=== PATIENT | female | born 2000 | race Caucasian/White ===

== ENCOUNTER 2018-05-19 18:01 | Emergency (ER) | payer OTHER ==
[2018-05-19 18:09] VITALS: BP 134/84; PULSE 72; RESP 18; TEMP 98
--- NOTE | 2018-05-19 18:21 | ED ---
General Adult HPI - General Chief complaint: Recheck/Abnormal Lab/Rx Stated complaint: [facility] TESTING Time Seen by Provider: 05/19/18 18:15 Source: patient, RN notes reviewed, old records reviewed Mode of arrival: ambulatory Limitations: no limitations - History of Present Illness Initial comments: 17-year-old female patient presents to ED for drug test as required by job. Pt declines any complaints today. Declines injury. Systemic: Pt denies fatigue, myalgia, fever/chills, rash. Pt denies weakness, night sweats, weight loss. Neuro: Pt denies headache, visual disturbances, syncope or pre-syncope. HEENT: Pt denies ocular discharge or irritation, otalgia, rhinorrhea, pharyngitis or notable lymphadenopathy. Cardiopulmonary: Pt denies chest pain, SOB, heart palpitations, dyspnea on exertion. Abdominal/GI: Pt denies abdominal pain, n/v/d. : Pt denies dysuria, burning w/ urination, frequency/urgency. Denies new onset urinary or bowel incontinence. MSK: Pt denies myalgia, loss of strength or function in extremities. Neuro: Pt denies new onset weakness, paresthesias. Review of Systems ROS Statement: Those systems with pertinent positive or pertinent negative responses have been documented in the HPI. ROS Other: All systems not noted in ROS Statement are negative. Past Medical History Past Medical History: No Reported History History of Any Multi-Drug Resistant Organisms: None Reported Past Surgical History: No Surgical Hx Reported Past Psychological History: No Psychological Hx Reported Smoking Status: Never smoker Past Alcohol Use History: None Reported Past Drug Use History: None Reported General Exam - General Exam Comments Initial Comments: Constitutional: NAD, AOX3, Pt has pleasant affect. HEENT: NC/AT, trachea midline, neck supple, no lymphadenopathy. Posterior pharynx non erythematous, without exudates. External ears appear normal, without discharge. Mucous membranes moist. Eyes PERRLA, EOM intact. There is no scleral icterus. No pallor noted. Cardiopulmonary: RRR, no murmurs, rubs or gallops, no JVD noted. Lungs CTAB in anterior and posterior garcia. No peripheral edema. Abdominal exam: Abdomen soft and non-distended. Abdomen non-tender to palpation in all 4 quadrants. Bowel sounds active in LLQ. No hepatosplenomegaly. No ecchymosis Neuro: CN II-XII grossly intact. No nuchal rigidity. MSK: No posterior calf tenderness bilaterally, homans sign negative bilaterally. Posterior tibialis and radial pulse +2 bilaterally. Sensation intact in upper and lower extremities. Full active ROM in upper and lower extremities, 5/5 stregnth. Limitations: no limitations Course Vital Signs 05/19/18 18:05 Temperature 98 F Pulse Rate 72 Respiratory 18 Rate Blood Pressure 134/84 O2 Sat by Pulse 100 Oximetry Medical Decision Making - Medical Decision Making 17-year-old female patient presents to ED for drug test as required by job. Patient has no complaints. Patient to return to ED if new signs or symptoms develop or condition worsens anyway. Case discussed with Dr. Marti. Disposition Clinical Impression: Encounter for employment-related drug testing Disposition: HOME SELF-CARE Condition: Stable Additional Instructions: Patient to adhere to previously discussed treatment plan and will take medication(s) as directed. Patient to follow up with PCP in 1-2 days. Patient to return to ED if symptoms do not improve. Is patient prescribed a controlled substance at d/c from ED?: No Referrals: None,Stated [Primary Care Provider] - 1-2 days Time of Disposition: 18:20
== END 2018-05-19 18:55 | disposition home or self-care (01) ==
LOC: EC 18:01
DX: Z02.1 Encounter for pre-employment examination (principal)
CPT/HCPCS: 99282

== ENCOUNTER 2018-09-02 07:43 | Outpatient (CLI) | payer BC, OTHER ==
[2018-09-02 08:53] LABS: Appearance,Urine Clear (Clear); Bacteria,Urine Few /hpf; Bilirubin,Urine Negative (Negative); Blood,Urine Negative (Negative); Color,Urine Light Yellow; Glucose,Urine (UA) Negative (Negative); Ketones,Urine Negative (Negative); Leukocyte Esterase,Urine Trace (Negative); Mucus,Urine Rare /hpf; Nitrite,Urine Negative (Negative); PH, Urine 6.5 (5.0-8.0); Protein,Urine Negative (Negative); Specific Gravity,Urine 1.007 (1.001-1.035); Squamous Epithelial Cell,Urine 2 /hpf (0-4); Urobilinogen,Urine <2.0 mg/dL (<2.0); WBC,Urine 1 /hpf (0-5)
[2018-09-02 10:40] VITALS: BP 120/66; PULSE 76; RESP 16; TEMP 98.7
--- NOTE | 2018-09-07 10:25 | P.MSEPDOC ---
Presenting Problems - Arrival Data Date of Arrival on Unit: 09/02/18 Time of Arrival on Unit: 07:43 Mode of Transport: Ambulatory - Complaint OB-Reason for Admission/Chief Complaint: Observation/Evaluation Comment: abd pain Medical History - Information : 1 Para: 0 Term: 0 : 0 Abortions: Spontaneous or Elective: 0 Number of Living Children: 0 - Gestational Age Gestational Age by CHARLA (wks/days): 24 Weeks and 6 Days Review of Systems - Review of Systems Constitutional: No problems Breast: No problems ENT: No problems Cardiovascular: No problems Respiratory: No problems Gastrointestinal: Pain Genitourinary: No problems Musculoskeletal: No problems Neurological: No problems Skin: No problems Vital Signs - Temperature Temperature: 98.7 F Temperature Source: Oral - Pulse Right Sitting Pulse Rate: 76 Pulse Assessment Method: Automatic Cuff - Respirations Respiratory Rate: 16 Oxygen Delivery Method: Room Air - Blood Pressure Right Arm Blood Pressure: 120/66 Blood Pressure Mean: 84 Blood Pressure Source: Automatic Cuff Medical Screen Scoring (Pre) - Cervical Exam Dilation: Exam Deferred Effacement: Exam Deferred - Uterine Contractions Frequency: N/A - Maternal Vital Signs Maternal Temperature: N/A Maternal Blood Pressure: N/A Signs of Preeclampsia: N/A - Pain Assessment Pain Location and Character: Abdomen Pain Scale Used: Numeric (1 - 10) Pain Intensity: 7 Pain Management Goal: 8 Pain Description: Stabbing, Tender Pain Frequency: Constant Pain Duration Units: Hours Pain Behavior: Vocalization Pain Aggravating Factors: None Non-Pharmacological Interventions: Position/Reposition - Maternal Trauma Maternal Trauma: N/A - Assessment Baseline FHR: 125 Heart Rate - NICHD Category: Category I (Normal) = 0 Position: N/A Station: N/A - Total Score Total Score (Pre): 0 - Level of Risk Level of Risk: Low (0-5) Physician Notification (Pre) - Physician Notified Physician Notified Date: 09/02/18 Physician Notified Time: 08:25 Physician/Practitioner Notifed:: Kiki Hawley Order Received: Yes (Send ua, if negative d/c home) Disposition - Disposition OB Disposition: Discharge to home Discharge Date: 09/02/18 Discharge Time: 09:15 I agree with the RN Medical Screening Exam: Yes Risk & Benefit of care provided described in d/c instruction: Yes Diagnosis: RELATED CONDITIONS, UNSPECIFIED, SECOND TRIMESTER
== END 2018-09-02 09:15 | disposition home or self-care (01) ==
LOC: FBPOP 07:43
PROVIDERS: ATTEND Obstetrics & Gynecology
DX: O26.92 Pregnancy related conditions, unspecified, second trimester (principal); Z3A.24 24 weeks gestation of pregnancy
CPT/HCPCS: 81001; 99213

== ENCOUNTER 2018-10-22 08:10 | Outpatient (CLI) | payer BC, OTHER ==
[2018-10-22 08:45] VITALS: BP 117/75; PULSE 72; RESP 16; TEMP 97.6
--- NOTE | 2018-11-12 08:29 | P.MSEPDOC ---
Presenting Problems - Arrival Data Date of Arrival on Unit: 10/22/18 Time of Arrival on Unit: 08:10 Mode of Transport: Ambulatory - Complaint OB-Reason for Admission/Chief Complaint: Possible Onset of Labor, Other Comment: "discomfort" Medical History - Information : 1 Para: 0 Term: 0 : 0 Abortions: Spontaneous or Elective: 0 Number of Living Children: 0 - Gestational Age Gestational Age by CHARLA (wks/days): 32 Weeks and 0 Days Review of Systems - Review of Systems Constitutional: No problems Breast: No problems ENT: No problems Cardiovascular: No problems Respiratory: No problems Gastrointestinal: No problems Genitourinary: No problems Musculoskeletal: No problems Neurological: No problems Skin: No problems Comment: intercourse last night. no other problem Vital Signs - Temperature Temperature: 97.6 F Temperature Source: Temporal Artery Scan - Pulse Apical Pulse Rate: 72 Pulse Assessment Method: Automatic Cuff - Respirations Respiratory Rate: 16 Oxygen Delivery Method: Room Air - Blood Pressure Right Arm Blood Pressure: 117/75 Blood Pressure Mean: 89 Blood Pressure Source: Automatic Cuff Medical Screen Scoring (Pre) - Cervical Exam Dilation: 0 cm = 0 Effacement: More than 50% = 2 Membranes: Intact - Uterine Contractions Frequency: N/A Duration: N/A Intensity: N/A - Maternal Vital Signs Maternal Temperature: N/A Maternal Blood Pressure: N/A Signs of Preeclampsia: N/A Maternal Respirations: N/A - Maternal Trauma Maternal Trauma: N/A - Assessment - Baby A Baseline FHR: 135 Heart Rate - NICHD Category: Category I (Normal) = 0 NST: Reactive Position: N/A Station: N/A - Total Score - Baby A Total Score - Baby A: 2 - Total Score - Baby B Total Score - Baby B: 2 - Total Score - Baby C Total Score - Baby C: 2 - Level of Risk - Baby A Level of Risk - Baby A: Low (0-5) - Level of Risk - Baby B Level of Risk - Baby B: Low (0-5) - Level of Risk - Baby C Level of Risk - Baby C: Low (0-5) Physician Notification (Pre) - Physician Notified Physician Notified Date: 10/22/18 Physician Notified Time: 08:40 Physician/Practitioner Notifed:: brianna Spoke With: tremp New Order Received: Yes - Notification Comment Comment: discharge home with instructions Disposition - Disposition OB Disposition: Discharge to home Discharge Date: 10/22/18 Discharge Time: 09:00 I agree with the RN Medical Screening Exam: Yes Risk & Benefit of care provided described in d/c instruction: Yes Diagnosis: FALSE LABOR BEFORE 37 COMPLETED WEEKS OF GEST, THIRD TRI
== END 2018-10-22 08:48 | disposition home or self-care (01) ==
LOC: FBPOP 08:10
PROVIDERS: ATTEND Obstetrics & Gynecology
DX: O47.03 False labor before 37 completed weeks of gestation, third trimester (principal); Z3A.32 32 weeks gestation of pregnancy
CPT/HCPCS: 59025; 99213

== ENCOUNTER 2018-12-20 05:54 | Inpatient (IN) | payer BC, OTHER ==
[2018-12-20] MEDS ORDERED: LIDOCAINE 0.5% (PF) 5 MG/ML (50 ML SDV) SQ PRN (06:04)
[2018-12-20] MEDS ORDERED: CARBOPROST TROMETHAMINE 250 MCG/ML 1 ML AMP IM PRN (06:04)
[2018-12-20] MEDS ORDERED: OXYTOCIN 10 UNIT/ML 1 ML VIAL IM PRN (06:04)
[2018-12-20] MEDS ORDERED: TERBUTALINE 1 MG/ML VIAL SQ PRN (06:04)
[2018-12-20] MEDS ORDERED: METHYLERGONOVINE 0.2 MG/ML 1 ML AMP IM PRN (06:04)
[2018-12-20] MEDS ORDERED: OXYTOCIN 30 UNITS/500 ML NS 30 UNIT in SALINE 1 500ML.BAG IV SCH (06:15)
[2018-12-20] MEDS: LACTATED RINGERS 1,000 ML IV SCH ×3 (06:17→12:37)
[2018-12-20 06:24] VITALS: BMI 29.3
[2018-12-20 06:35] LABS: Basophils % (A) 0 %; Eosinophils # (A) 0.2 k/uL (0-0.7); Eosinophils % (A) 2 %; HCT 35.6 % (34.0-46.0); Lymphocytes # (A) 1.7 k/uL (1.0-4.8); Lymphocytes % (A) 17 %; MCH 29.2 pg (25.0-35.0); MCHC 33.7 g/dL (31.0-37.0); MCV 86.7 fL (80.0-100.0); Monocytes # (A) 0.6 k/uL (0-1.0); Monocytes % (A) 6 %; Neutrophils # (A) 7.2 k/uL (1.3-7.7); Neutrophils % (A) 73 %; Platelet Count 161 k/uL (150-450); RBC 4.11 m/uL (3.80-5.40); RDW 15.8 % (11.5-15.5); WBC 9.8 k/uL (4.0-11.0)
[2018-12-20 07:02] LABS: Large Platelets Present
--- NOTE | 2018-12-20 07:26 | P.HPOB ---
History of Present Illness H&P Date: 12/20/18 Chief Complaint: Postdates This is a 18-year-old 1 para 0 woman with an estimated due date of 12/27/2018 based on LMP consistent with second trimester ultrasound. She is admitted at 40-3/7 weeks gestation for induction of labor. She's had an uncomplicated . She denies contractions, vaginal bleeding or leakage of fluids. She feels good movement. Laboratory data: Blood type AB+, antibody screen negative, rubella immune, VDRL nonreactive, hepatitis B surface antigen negative, HIV negative, glucose tolerance testing within normal limits, group B strep negative. Review of Systems All systems: negative Past Medical History Past Medical History: No Reported History History of Any Multi-Drug Resistant Organisms: None Reported Past Surgical History: No Surgical Hx Reported Past Psychological History: No Psychological Hx Reported Smoking Status: Never smoker Past Alcohol Use History: None Reported Past Drug Use History: None Reported - Past Family History Mother Family Medical History: Diabetes Mellitus Medications and Allergies Home Medications Medication Instructions Recorded Confirmed Type Pnv No.95/Ferrous Fum/Folic AC 1 tab PO DAILY 09/02/18 12/20/18 History [ Multivitamin Tablet] Allergies Allergy/AdvReac Type Severity Reaction Status Date / Time No Known Allergies Allergy Verified 12/20/18 06:03 Exam Vital Signs Temp Pulse Resp BP Pulse Ox 12/20/18 06:18 97.8 F 78 17 128/83 99 Intake and Output 12/19/18 12/20/18 12/20/18 22:59 06:59 14:59 Other: Weight 82.554 kg Targeted physical exam is performed. This is a comfortable appearing, visibly gravid female. On pelvic exam the cervix is 3 cm dilated, 70% effaced, posterior and the vertex in the -2 station. Artificial rupture of membranes is undertaken and copious clear fluid is noted. heart tones are category 1 by external monitoring and she is not regularly patricio. Results Result Diagrams: 12/20/18 06:15 Abnormal Lab Results - Last 24 Hours (Table) 12/20/18 Range/Units 06:15 RDW 15.8 H (11.5-15.5) % Assessment and Plan (1) Post-dates Current Visit: Yes Status: Acute Code(s): O48.0 - POST-TERM SNOMED Code(s): 71526067 Plan: 18-year-old 1 para 0 woman admitted at 40-3/7 weeks gestation for postdates induction of labor with favorable cervix. Risks benefits and alternatives of this plan of interview the patient in the office. status is currently reassuring by external monitoring. Pitocin induction per protocol has been initiated she may receive have Stadol and/or epidural upon request in active labor for analgesia.
[2018-12-20] MEDS ORDERED: BUTORPHANOL 1 MG/ML 1 ML VIAL IV PRN (08:23)
[2018-12-20] MEDS ORDERED: SODIUM CHLORIDE 0.9% 100 ML BAG ONE (11:10)
[2018-12-20] MEDS ORDERED: ROPIVACAINE 5MG/ML 20ML VIAL ONE (11:10)
[2018-12-20] MEDS ORDERED: fentaNYL (PF) 50 MCG/ML 5 ML AMP ONE (11:10)
[2018-12-20] MEDS ORDERED: BENZOCAINE/MENTHOL SPRAY 1 GM/SPRAY AEROSOL TOPICAL PRN (15:27)
[2018-12-20] MEDS ORDERED: ACETAMINOPHEN TAB 325 MG TAB PO PRN (15:27)
[2018-12-20] MEDS ORDERED: LANOLIN CREAM 5 GM TUBE TOPICAL PRN (15:27)
[2018-12-20] MEDS ORDERED: diphenhydrAMINE 50 MG CAP PO PRN (15:27)
[2018-12-20] MEDS ORDERED: diphenhydrAMINE 25 MG CAP PO PRN (15:27)
[2018-12-20] MEDS ORDERED: HYDROCORTISONE 2.5% RECTAL CREAM 30 GM TUBE RECTAL PRN (15:27)
[2018-12-20] MEDS ORDERED: WITCH HAZEL 1 EACH MED..PAD TOPICAL PRN (15:27)
[2018-12-20] MEDS ORDERED: SIMETHICONE 80 MG CHEWABLE PO PRN (15:27)
[2018-12-20] MEDS ORDERED: diphenhydrAMINE 50 MG/ML 1 ML VIAL IVP PRN ×2 (15:27)
[2018-12-20] MEDS ORDERED: ZOLPIDEM 5 MG TAB PO PRN (15:27)
[2018-12-20] MEDS ORDERED: IBUPROFEN 600 MG TAB PO PRN (15:27)
--- NOTE | 2018-12-20 15:27 | P.PROBDLV ---
Vaginal Delivery Note - . Vaginal Delivery Note: Male in the vertex presentation with Apgars of 9 at 1 minute and 9 at 5 minutes weighing 8 lbs. 7 oz., 3830 g. Second-degree perineal laceration. Unusual appearing placenta with smooth but scalloped edges. The cord insertion was not marginal however there is a vessel traversing from near the base of the cord 1-2 cm lateral from the base of the cord insertion. Delivery summary: This is a 18-year-old 1 para 0 woman who is admitted at 40-3/7 weeks gestation for postdates induction of labor. Following admission she underwent artificial rupture of membranes with Pitocin induction of labor per protocol. She received an epidural anesthetic. She was group B strep negative. She had an unremarkable and somewhat rapid progression to complete cervical dilation and began pushing with excellent maternal effort. She had category 1 or 2 heart tones throughout her first stage and second stage of labor. With the patient was repositioned, prepped and draped in the modified Shalom position. With additional maternal effort the head did deliver from the left occiput anterior position. The anterior followed by the posterior shoulders were delivered without difficulty. The rest the was delivered onto the field. The nose and mouth were bulb suctioned and the cord was clamped and cut. A second degree perineal laceration was repaired with 3-0 Vicryl suture in the usual fashion. There is a somewhat prolonged third stage of labor with ultimately a manual assistance of delivery of the placenta. The placenta was for the most part delivered from the cervix however there was a large amount of membranous material that remained on the cervical canal that was removed manually. Bimanual exploration was then undertaken and no further placental tissue was noted. Please see the findings for description of appearance of the placenta. The uterus was massaged and was noted to be firm at the level of the umbilicus. The bladder was drained for approximately 200 mL of clear urine. EBL was approximately 200 mL's. Both mother and were doing well post delivery in the room.
[2018-12-20] MEDS ORDERED: OXYTOCIN 20 UNITS/1000 ML NS 1,000 ML IV SCH (15:30)
[2018-12-20] MEDS: SENNOSIDES-DOCUSATE SODIUM 1 EACH TAB PO SCH (19:36)
[2018-12-21 07:09] LABS: Basophils % (A) 0 %; Eosinophils # (A) 0.1 k/uL (0-0.7); Eosinophils % (A) 1 %; HCT 32.2 % (34.0-46.0); HGB 10.8 gm/dL (11.4-16.0); Lymphocytes # (A) 1.9 k/uL (1.0-4.8); Lymphocytes % (A) 16 %; MCH 29.3 pg (25.0-35.0); MCHC 33.5 g/dL (31.0-37.0); MCV 87.6 fL (80.0-100.0); Mean Platelet Volume 10.5; Monocytes # (A) 0.8 k/uL (0-1.0); Monocytes % (A) 7 %; Neutrophils # (A) 8.7 k/uL (1.3-7.7); Neutrophils % (A) 74 %; Platelet Count 159 k/uL (150-450); RBC 3.68 m/uL (3.80-5.40); RDW 14.5 % (11.5-15.5); WBC 11.8 k/uL (4.0-11.0)
[2018-12-21] MEDS: SENNOSIDES-DOCUSATE SODIUM 1 EACH TAB PO SCH (08:02)
[2018-12-21 08:09] VITALS: PULSE 75; RESP 16; TEMP 97.7
--- NOTE | 2018-12-21 09:16 | P.DS ---
Providers Date of admission: 12/20/18 05:54 Expected date of discharge: 12/21/18 Attending physician: Sonia Liao Primary care physician: Stated None - Discharge Diagnosis(es) (1) Post-dates Current Visit: Yes Status: Acute (2) Normal spontaneous vaginal delivery Current Visit: Yes Status: Acute (3) Perineal laceration with delivery, second degree Current Visit: Yes Status: Acute (4) Velamentous insertion of umbilical cord Current Visit: Yes Status: Acute Hospital Course: This is a 18-year-old 1 now para 1 woman who was admitted at 40-3/7 weeks gestation for postdates induction of labor with a favorable cervix. Following admission she underwent a Pitocin induction of labor per protocol with artificial rupture of membranes. Clear fluid was noted. She had an unremarkable first stage of labor during which she received an epidural anesthetic. She reached complete cervical dilation after an approximately 7 hour first stage of labor. She commenced pushing with excellent maternal effort and on had a fairly rapid delivery of a liveborn male infant over a second- degree perineal laceration. Weight was 8 lbs. 7 oz. with Apgars of 9 at 1 minute and 9 at 5 minutes. She had an approximately 20 minute third stage of labor with manual assistance of delivery of the placenta. The placenta was partially delivered from the cervix. There is a large amount of membranous material in the lower uterine segment that was manually removed. Upon inspection of the placenta there appeared to be a velamentous the cord inser tion. Please see the delivery summary for description. EBL for the delivery was approximately 200 mL's and the uterus did contract down nicely with Pitocin. She was given 2 doses of Ancef prophylactically and by the morning of day #1 she was afebrile with a normal white blood cell count. Her antibiotics were discontinued. Her lochia was moderate and her uterus palpated firm. Perineum is intact. She was therefore discharged home with routine instructions for care and follow-up. Procedures: Normal spontaneous vaginal delivery Manual extraction of placenta Patient Condition at Discharge: Good Plan - Discharge Summary New Discharge Prescriptions: No Action Pnv No.95/Ferrous Fum/Folic AC [ Multivitamin Tablet] 1 tab PO DAILY Discharge Medication List Pnv No.95/Ferrous Fum/Folic AC [ Multivitamin Tablet] 1 tab PO DAILY 05/26/19 [History] Follow up Appointment(s)/Referral(s): Sonia Liao MD [STAFF PHYSICIAN] - 6 Weeks Activity/Diet/Wound Care/Special Instructions: Follow-up in the office in 6 weeks . Call with any concerning signs or symptoms including heavy vaginal bleeding, severe abdominal pain, fever greater than 101, swelling or redness of the lower extremities, foul vaginal discharge, or signs of depression. Nothing in the vagina for 6 weeks after delivery, specifically no intercourse. May use [id number] ibuprofen and/or Tylenol as needed for pain. Discharge Disposition: HOME SELF-CARE
[2018-12-21 18:13] VITALS: BP 125/64
== END 2018-12-21 17:50 | disposition home or self-care (01) | DRG 807 ==
LOC: 4FBP 05:54
PROVIDERS: ADMIT Obstetrics & Gynecology; ATTEND Obstetrics & Gynecology
PROC: 10E0XZZ Delivery of Products of Conception, External Approach (ICD-10-PCS; principal; 2018-12-20)
PROC: 0KQM0ZZ Repair Perineum Muscle, Open Approach (ICD-10-PCS; 2018-12-20)
PROC: 10D17Z9 Manual Extraction of Products of Conception, Retained, Via Natural or Artificial Opening (ICD-10-PCS; 2018-12-20)
PROC: 3E033VJ Introduction of Other Hormone into Peripheral Vein, Percutaneous Approach (ICD-10-PCS; 2018-12-20)
PROC: 10907ZC Drainage of Amniotic Fluid, Therapeutic from Products of Conception, Via Natural or Artificial Opening (ICD-10-PCS; 2018-12-20)
PROC: 00HU33Z Insertion of Infusion Device into Spinal Canal, Percutaneous Approach (ICD-10-PCS; 2018-12-20)
PROC: 3E0R3BZ Introduction of Anesthetic Agent into Spinal Canal, Percutaneous Approach (ICD-10-PCS; 2018-12-20)
DX: O48.0 Post-term pregnancy (principal); Z37.0 Single live birth; O43.123 Velamentous insertion of umbilical cord, third trimester; O70.1 Second degree perineal laceration during delivery; Z3A.40 40 weeks gestation of pregnancy; Z79.899 Other long term (current) drug therapy; Z83.3 Family history of diabetes mellitus
CPT/HCPCS: 85025; 86850; 86900; 86901; 88307

== ENCOUNTER 2021-09-27 05:52 | Emergency (ER) | payer BC, OTHER ==
[2021-09-27 06:11] VITALS: TEMP 98.2
--- NOTE | 2021-09-27 06:30 | ED ---
General Adult HPI - General Chief complaint: Urogenital Stated complaint: Pelvic pain Time Seen by Provider: 09/27/21 06:19 Source: patient, RN notes reviewed, old records reviewed Mode of arrival: ambulatory Limitations: no limitations - History of Present Illness Initial comments: 21-year-old female presenting for evaluation of lower abdominal and pelvic pain. Symptoms began this morning. Patient had gotten up and gone to the bathroom. At the end of her urination she had moderate to severe bilateral lower abdominal pain which is improved but not completely resolved. There is no vomiting. No upper abdominal pain. Her last bowel movement was yesterday was normal. No diarrhea. No fever. No vaginal discharge. No hematuria. - Related Data Home Medications Medication Instructions Recorded Confirmed No Known Home Medications 09/27/21 09/27/21 Allergies Allergy/AdvReac Type Severity Reaction Status Date / Time No Known Allergies Allergy Verified 09/27/21 07:09 Review of Systems ROS Statement: Those systems with pertinent positive or pertinent negative responses have been documented in the HPI. ROS Other: All systems not noted in ROS Statement are negative. Past Medical History Past Medical History: No Reported History History of Any Multi-Drug Resistant Organisms: None Reported Past Surgical History: No Surgical Hx Reported Past Psychological History: Depression Smoking Status: Never smoker Past Alcohol Use History: Occasional Past Drug Use History: None Reported - Past Family History Mother Family Medical History: Diabetes Mellitus General Exam Limitations: no limitations General appearance: alert, in no apparent distress Head exam: Present: atraumatic, normocephalic Eye exam: Present: normal appearance, PERRL ENT exam: Present: normal exam Neck exam: Present: normal inspection. Absent: tenderness, meningismus Respiratory exam: Present: normal lung sounds bilaterally. Absent: respiratory distress, wheezes Cardiovascular Exam: Present: regular rate, normal rhythm GI/Abdominal exam: Present: soft. Absent: distended, tenderness, guarding, rebound Extremities exam: Present: normal inspection, normal capillary refill Neurological exam: Present: alert, oriented X3, CN II-XII intact. Absent: motor sensory deficit Psychiatric exam: Present: normal affect, normal mood Skin exam: Present: warm, dry, intact. Absent: cyanosis, diaphoretic Course Vital Signs 09/27/21 06:09 Temperature 98.2 F Pulse Rate 96 Respiratory 18 Rate Blood Pressure 142/104 O2 Sat by Pulse 100 Oximetry Medical Decision Making - Medical Decision Making 21-year-old female with lower abdominal pain and pelvic pain after urinating. Pain began suddenly and was bilateral. She has no abdominal tenderness on exam. Her symptoms are nearly completely resolved at the time my evaluation. Her urinalysis is negative for infection or hematuria. She is not . Ultrasound is performed which does show some free fluid and a complex cyst on her right ovary and moderate free fluid within the pelvis. Patient is quite well-appearing with stable vitals. She will follow up with gynecology. Return parameters were discussed at length. This is likely ruptured cyst. - Lab Data Lab Results 09/27/21 09/27/21 Range/Units 06:27 06:27 Urine Color Yellow Urine Appearance Clear (Clear) Urine pH 6.5 (5.0-8.0) Ur Specific [place] 1.012 (1.001-1.035) Urine Protein Negative (Negative) Urine Glucose (UA) Negative (Negative) Urine Ketones Negative (Negative) Urine Blood Negative (Negative) Urine Nitrite Negative (Negative) Urine Bilirubin Negative (Negative) Urine Urobilinogen <2.0 (<2.0) mg/dL Ur Leukocyte Esterase Negative (Negative) Urine HCG, Qual Not Detected (Not Detectd) Disposition Clinical Impression: Ruptured ovarian cyst Disposition: HOME SELF-CARE Condition: Fair Instructions (If sedation given, give patient instructions): Ovarian Cyst (ED), Ruptured Ovarian Cyst (ED) Is patient prescribed a controlled substance at d/c from ED?: No Referrals: Luna Ryder MD [Primary Care Provider] - 1-2 days Sonia Liao MD [STAFF PHYSICIAN] - 1-2 days Time of Disposition: 07:57
[2021-09-27 06:36] LABS: Appearance,Urine Clear (Clear); Bilirubin,Urine Negative (Negative); Blood,Urine Negative (Negative); Color,Urine Yellow; Glucose,Urine (UA) Negative (Negative); Ketones,Urine Negative (Negative); Leukocyte Esterase,Urine Negative (Negative); Nitrite,Urine Negative (Negative); PH, Urine 6.5 (5.0-8.0); Protein,Urine Negative (Negative); Specific Gravity,Urine 1.012 (1.001-1.035); Urobilinogen,Urine <2.0 mg/dL (<2.0)
--- NOTE | 2021-09-27 07:51 | US ---
EXAMINATION TYPE: US transvaginal DATE OF EXAM: 09/27/2021 COMPARISON: NONE CLINICAL HISTORY: pelvic pain. pelvic pain TECHNIQUE: Transvaginal (TV). Date of LMP: 08/27/21 EXAM MEASUREMENTS: Uterus: 8.3 x 4.2 x 5.7 cm Endometrial Stripe: 0.5 cm Right Ovary: 3.3 x 2.2 x 2.4 cm Left Ovary: 4.5 x 3.0 x 3.5 cm 1. Uterus: Anteverted 2. Endometrium: wnl 3. Right Ovary: follicles noted 4. Left Ovary: complex cystic area = 3.1 x 1.6 x 3.0cm Spectral, color and waveform doppler imaging shows good arterial and venous flow within the ovaries ; there is no evidence for ovarian torsion. 5. Bilateral Adnexa: free fluid right adnexa 6. Posterior cul-de-sac: free fluid noted IMPRESSION: 1. Moderate free fluid within the pelvis. 2. Complex cyst left ovary. Follow-up is recommended.
[2021-09-27 08:09] VITALS: BP 110/65; PULSE 75; RESP 16
== END 2021-09-27 08:09 | disposition home or self-care (01) ==
LOC: EC 05:52
DX: N83.209 Unspecified ovarian cyst, unspecified side (principal)
CPT/HCPCS: 76830; 81003; 81025; 93975

== ENCOUNTER → 2022-01-31 | Outpatient (CLI) | payer OTHER ==
--- NOTE | 2022-02-01 07:14 | US ---
EXAMINATION TYPE: US pelvic complete DATE OF EXAM: 01/31/2022 COMPARISON: Transvaginal ultrasound 09/27/2021. CLINICAL HISTORY: N83.202 unspec left ovarian cyst. Hx left ovarian cyst. Patient states left side p ain. TECHNIQUE: Transabdominal (TA). Transabdominal sonographic images of the pelvis were acquired. Date of LMP: 01/15/2022, EXAM MEASUREMENTS: Uterus: 7.6 x 4.7 x 4.6 cm Endometrial Stripe: 0.4 cm Right Ovary: 4.3 x 3.4 x 2.6 cm Left Ovary: 2.8 x 2.7 x 2.2 cm 1. Uterus: Retroverted wnl 2. Endometrium: wnl 3. Right Ovary: simple follicular cyst = 3.4 x 2.3 x 1.8 cm 4. Left Ovary: follicles seen. Resolution of previously demonstrated complex cyst. 5. Bilateral Adnexa: wnl 6. Posterior cul-de-sac: small amount of free fluid IMPRESSION: 1. No acute pelvic process. 2. Resolution of previous demonstrated left complex cyst. This was likely a hemorrhagic cyst. 3. Right ovarian simple follicular cyst. 4. Small free fluid within the pelvis.
== END | disposition home or self-care (01) ==
LOC: RADUSWWP 16:20
PROVIDERS: ATTEND Family Medicine
DX: N83.01 Follicular cyst of right ovary (principal)
CPT/HCPCS: 76856

== ENCOUNTER 2022-03-08 09:37 | Emergency (ER) | payer OTHER ==
[2022-03-08 09:46] VITALS: BP 112/78; PULSE 77; RESP 18; TEMP 98
--- NOTE | 2022-03-08 10:15 | ED ---
Abdominal Pain HPI - General Chief Complaint: Abdominal Pain Stated Complaint: pelvic/abd pain Time Seen by Provider: 03/08/22 09:38 Source: patient, EMS, RN notes reviewed Mode of arrival: EMS Limitations: no limitations - History of Present Illness Initial Comments: 21-year-old female presents emergency Department with chief complaint abdominal pain. Patient states she had sudden onset of lower abdominal pain states felt like contractions. Patient does have a history of ovarian cysts states that she usually has issues with her left side but this felt were primary and right lower. Patient states pain is subsided and very minimal at 2 out of 10 currently. Patient denies any fevers chills did have slight nausea without vomiting no diarrhea no constipation or dysuria. Patient has no history kidney stones. - Related Data Home Medications Medication Instructions Recorded Confirmed No Known Home Medications 09/27/21 09/27/21 Allergies Allergy/AdvReac Type Severity Reaction Status Date / Time No Known Allergies Allergy Verified 09/27/21 07:09 Review of Systems ROS Statement: Those systems with pertinent positive or pertinent negative responses have been documented in the HPI. ROS Other: All systems not noted in ROS Statement are negative. Past Medical History Past Medical History: No Reported History Additional Past Medical History / Comment(s): ovarian cyst History of Any Multi-Drug Resistant Organisms: None Reported Past Surgical History: No Surgical Hx Reported Past Psychological History: Depression Smoking Status: Never smoker Past Alcohol Use History: Occasional Past Drug Use History: None Reported - Past Family History Mother Family Medical History: Diabetes Mellitus General Exam Limitations: no limitations General appearance: alert, in no apparent distress Head exam: Present: atraumatic, normocephalic, normal inspection Eye exam: Present: normal appearance, PERRL, EOMI. Absent: scleral icterus, conjunctival injection, periorbital swelling ENT exam: Present: normal exam, normal oropharynx, mucous membranes moist Neck exam: Present: normal inspection, full ROM. Absent: tenderness, meningismus, lymphadenopathy Respiratory exam: Present: normal lung sounds bilaterally. Absent: respiratory distress, wheezes, rales, rhonchi, stridor Cardiovascular Exam: Present: regular rate, normal rhythm, normal heart sounds. Absent: systolic murmur, diastolic murmur, rubs, gallop, clicks GI/Abdominal exam: Present: soft, normal bowel sounds. Absent: distended, tende rness, guarding, rebound, rigid Back exam: Absent: CVA tenderness (R), CVA tenderness (L) Neurological exam: Present: alert Psychiatric exam: Present: normal affect, normal mood Course Vital Signs 03/08/22 09:43 Temperature 98 F Pulse Rate 77 Respiratory 18 Rate Blood Pressure 112/78 O2 Sat by Pulse 98 Oximetry Medical Decision Making - Medical Decision Making 20-year-old presented for abdominal pain send onset which was resolving prior arrival. Patient feels improved at this time. Patient discharged in stable condition with ruptured ovarian cyst. Ultrasound shows decreasing ovarian cyst size. - Lab Data Result diagrams: 03/08/22 11:03 03/08/22 10:14 Lab Results 03/08/22 03/08/22 03/08/22 Range/Units 10:14 10:14 10:14 WBC (3.8-10.6) k/uL RBC (3.80-5.40) m/uL Hgb (11.4-16.0) gm/dL Hct (34.0-46.0) % MCV (80.0-100.0) fL MCH (25.0-35.0) pg MCHC (31.0-37.0) g/dL RDW (11.5-15.5) % Plt Count (150-450) k/uL MPV Neutrophils % % Lymphocytes % % Monocytes % % Eosinophils % % Basophils % % Neutrophils # (1.3-7.7) k/uL Lymphocytes # (1.0-4.8) k/uL Monocytes # (0-1.0) k/uL Eosinophils # (0-0.7) k/uL Basophils # (0-0.2) k/uL Sodium 138 (137-145) mmol/L Potassium 3.6 (3.5-5.1) mmol/L Chloride 112 H (98-107) mmol/L Carbon Dioxide 18 L (22-30) mmol/L Anion Gap 8 mmol/L BUN 7 (7-17) mg/dL Creatinine 0.47 L (0.52-1.04) mg/dL Est GFR (CKD-EPI)AfAm >90 (>60 ml/min/1.73 sqM) Est GFR (CKD-EPI)NonAf >90 (>60 ml/min/1.73 sqM) Glucose 83 (74-99) mg/dL Calcium 6.9 L (8.4-10.2) mg/dL Total Bilirubin 0.5 (0.2-1.3) mg/dL AST 15 (14-36) U/L ALT 14 (4-34) U/L Alkaline Phosphatase 34 L (38-126) U/L Total Protein 5.9 L (6.3-8.2) g/dL Albumin 3.4 L (3.5-5.0) g/dL Urine Color Yellow Urine Appearance Cloudy H (Clear) Urine pH 6.5 (5.0-8.0) Ur Specific Tucker 1.017 (1.001-1.035) Urine Protein Negative (Negative) Urine Glucose (UA) Negative (Negative) Urine Ketones Negative (Negative) Urine Blood Negative (Negative) Urine Nitrite Negative (Negative) Urine Bilirubin Negative (Negative) Urine Urobilinogen 2.0 (<2.0) mg/dL Ur Leukocyte Esterase Negative (Negative) Urine WBC 2 (0-5) /hpf Ur Squamous Epith Cells 2 (0-4) /hpf Amorphous Sediment Occasional H (None) /hpf Urine Bacteria Occasional H (None) /hpf Urine Mucus Few H (None) /hpf Urine HCG, Qual Not Detected (Not Detectd) 03/08/22 Range/Units 11:03 WBC 6.3 (3.8-10.6) k/uL RBC 4.37 (3.80-5.40) m/uL Hgb 13.0 (11.4-16.0) gm/dL Hct 38.8 (34.0-46.0) % MCV 88.7 (80.0-100.0) fL MCH 29.7 (25.0-35.0) pg MCHC 33.4 (31.0-37.0) g/dL RDW 12.5 (11.5-15.5) % Plt Count 174 (150-450) k/uL MPV 11.5 Neutrophils % 74 % Lymphocytes % 17 % Monocytes % 5 % Eosinophils % 2 % Basophils % 1 % Neutrophils # 4.6 (1.3-7.7) k/uL Lymphocytes # 1.1 (1.0-4.8) k/uL Monocytes # 0.3 (0-1.0) k/uL Eosinophils # 0.1 (0-0.7) k/uL Basophils # 0.1 (0-0.2) k/uL Sodium (137-145) mmol/L Potassium (3.5-5.1) mmol/L Chloride (98-107) mmol/L Carbon Dioxide (22-30) mmol/L Anion Gap mmol/L BUN (7-17) mg/dL Creatinine (0.52-1.04) mg/dL Est GFR (CKD-EPI)AfAm (>60 ml/min/1.73 sqM) Est GFR (CKD-EPI)NonAf (>60 ml/min/1.73 sqM) Glucose (74-99) mg/dL Calcium (8.4-10.2) mg/dL Total Bilirubin (0.2-1.3) mg/dL AST (14-36) U/L ALT (4-34) U/L Alkaline Phosphatase (38-126) U/L Total Protein (6.3-8.2) g/dL Albumin (3.5-5.0) g/dL Urine Color Urine Appearance (Clear) Urine pH (5.0-8.0) Ur Specific Tucker (1.001-1.035) Urine Protein (Negative) Urine Glucose (UA) (Negative) Urine Ketones (Negative) Urine Blood (Negative) Urine Nitrite (Negative) Urine Bilirubin (Negative) Urine Urobilinogen (<2.0) mg/dL Ur Leukocyte Esterase (Negative) Urine WBC (0-5) /hpf Ur Squamous Epith Cells (0-4) /hpf Amorphous Sediment (None) /hpf Urine Bacteria (None) /hpf Urine Mucus (None) /hpf Urine HCG, Qual (Not Detectd) Disposition Clinical Impression: Ruptured ovarian cyst Disposition: HOME SELF-CARE Condition: Stable Instructions (If sedation given, give patient instructions): Ruptured Ovarian Cyst (ED) Additional Instructions: Please return to the Emergency Department if symptoms worsen or any other concerns. Is patient prescribed a controlled substance at d/c from ED?: No Referrals: Luna Ryder MD [Primary Care Provider] - 1-2 days Time of Disposition: 12:10
[2022-03-08 10:40] LABS: ALT 14 U/L (4-34); AST 15 U/L (14-36); African American GFR (CKD) >90 (>60 ml/min/1.73 sqM); Albumin 3.4 g/dL (3.5-5.0); Alkaline Phosphatase 34 U/L (38-126); Anion Gap 8 mmol/L; Blood Urea Nitrogen 7 mg/dL (7-17); Calcium 6.9 mg/dL (8.4-10.2); Carbon Dioxide 18 mmol/L (22-30); Chloride 112 mmol/L (98-107); Glucose 83 mg/dL (74-99); Non-African American GFR(CKD) >90 (>60 ml/min/1.73 sqM); Potassium 3.6 mmol/L (3.5-5.1); Sodium 138 mmol/L (137-145); Total Bilirubin 0.5 mg/dL (0.2-1.3); Total Protein 5.9 g/dL (6.3-8.2)
[2022-03-08 10:59] LABS: Amorphous Sediment,Urine Occasional /hpf; Appearance,Urine Cloudy (Clear); Bacteria,Urine Occasional /hpf; Bilirubin,Urine Negative (Negative); Blood,Urine Negative (Negative); Color,Urine Yellow; Glucose,Urine (UA) Negative (Negative); Ketones,Urine Negative (Negative); Leukocyte Esterase,Urine Negative (Negative); Mucus,Urine Few /hpf; Nitrite,Urine Negative (Negative); PH, Urine 6.5 (5.0-8.0); Protein,Urine Negative (Negative); Specific Gravity,Urine 1.017 (1.001-1.035); Squamous Epithelial Cell,Urine 2 /hpf (0-4); WBC,Urine 2 /hpf (0-5)
[2022-03-08 11:15] LABS: Basophils # (A) 0.1 k/uL (0-0.2); Basophils % (A) 1 %; Eosinophils # (A) 0.1 k/uL (0-0.7); Eosinophils % (A) 2 %; HCT 38.8 % (34.0-46.0); Lymphocytes # (A) 1.1 k/uL (1.0-4.8); Lymphocytes % (A) 17 %; MCH 29.7 pg (25.0-35.0); MCHC 33.4 g/dL (31.0-37.0); MCV 88.7 fL (80.0-100.0); Mean Platelet Volume 11.5; Monocytes # (A) 0.3 k/uL (0-1.0); Monocytes % (A) 5 %; Neutrophils # (A) 4.6 k/uL (1.3-7.7); Neutrophils % (A) 74 %; Platelet Count 174 k/uL (150-450); RBC 4.37 m/uL (3.80-5.40); RDW 12.5 % (11.5-15.5); WBC 6.3 k/uL (3.8-10.6)
--- NOTE | 2022-03-08 11:59 | US ---
EXAMINATION TYPE: US transvaginal DATE OF EXAM: 03/08/2022 COMPARISON: 01/31/2022 ultrasound CLINICAL HISTORY: right side pain, hx cyst. Right-sided pelvic pain. . TECHNIQUE: Transvaginal (TV). Date of LMP: 02/15/2022 EXAM MEASUREMENTS: Uterus: 7.6 x 5.4 x 4.2 cm Endometrial Stripe: 0.28 cm Right Ovary: 4.4 x 1.9 x 2.1 cm Left Ovary: 3.4 x 2.4 x 2.2 cm 1. Uterus: Retroverted Appearance of some fluid within cervix. 2. Endometrium: Measures 0.28 cm 3. Right Ovary: Anechoic area seen: 2.2 x 1.2 x 0.7 cm. Previous cyst measurement of 3.4 x 1.8 x 2.3 cm. 4. Left Ovary: Appears wnl Spectral, color and waveform doppler imaging shows arterial and venous flow within the ovaries. 5. Bilateral Adnexa: Free fluid and prominent vascularity seen in right adnexa. 6. Posterior cul-de-sac: Moderate Free fluid seen that appears to have some internal echoes within. This is developing from comparison. IMPRESSION: 1. Moderate free fluid developing within the pelvis. This is complex fluid with internal echoes. 2. Right ovarian cyst diminished in size from comparison
== END 2022-03-08 12:34 | disposition home or self-care (01) ==
LOC: EC 09:37
DX: N83.201 Unspecified ovarian cyst, right side (principal); F32.A Depression, unspecified
CPT/HCPCS: 36415; 76830; 80053; 81001; 81025; 85025; 93975; 99285

== ENCOUNTER 2022-11-26 16:00 | Emergency (ER) | payer OTHER ==
[2022-11-26 16:11] VITALS: TEMP 98
[2022-11-26] MEDS ORDERED: FAMOTIDINE 20 MG/2 ML VIAL IV STA (16:22)
--- NOTE | 2022-11-26 16:36 | ED ---
Allergic Reaction HPI - General Chief complaint: Allergic Reaction Stated complaint: Allergic Reaction to Meds,15 weeks Time Seen by Provider: 11/26/22 16:13 Source: patient Mode of arrival: wheelchair Limitations: no limitations - History of Present Illness Initial Comments: 22-year-old female presenting with chief complaint of rash. She is currently 15 weeks . She was recently on Augmentin for the dental infection. She finished Augmentin the patient on was given states that yesterday she began breaking out in hives. Rash is present on the extremities, trunk, and face. She admits to warmth with mild itching. No difficulty breathing or swallowing. No swelling to the lips or tongue. No chest pain. No abdominal pain, nausea, vomiting. No sloughing of the skin. No fevers or chills. No abdominal pain or vaginal bleeding. Patient has been taking Benadryl at home with no improvement or worsening. - Related Data Home Medications Medication Instructions Recorded Confirmed No Known Home Medications 09/27/21 09/27/21 Allergies Allergy/AdvReac Type Severity Reaction Status Date / Time No Known Allergies Allergy Verified 09/27/21 07:09 Review of Systems ROS Statement: Those systems with pertinent positive or pertinent negative responses have been documented in the HPI. ROS Other: All systems not noted in ROS Statement are negative. Past Medical History Past Medical History: No Reported History Additional Past Medical History / Comment(s): ovarian cyst History of Any Multi-Drug Resistant Organisms: None Reported Past Surgical History: No Surgical Hx Reported Past Psychological History: Depression Smoking Status: Never smoker Past Alcohol Use History: Occasional Past Drug Use History: None Reported - Past Family History Mother Family Medical History: Diabetes Mellitus General Exam Limitations: no limitations General appearance: alert, in no apparent distress Head exam: Present: atraumatic, normocephalic, normal inspection Eye exam: Present: normal appearance, EOMI ENT exam: Present: normal oropharynx, mucous membranes moist Expanded Mouth exam: Present: normal external inspection, tongue normal. Absent: drooling, trismus, muffled voice Throat exam: normal inspection Neck exam: Present: normal inspection, full ROM Respiratory exam: Present: normal lung sounds bilaterally. Absent: respiratory distress, wheezes, rales, rhonchi, stridor Cardiovascular Exam: Present: regular rate, normal rhythm, normal heart sounds. Absent: systolic murmur, diastolic murmur, rubs, gallop, clicks Neurological exam: Present: alert, oriented X3, CN II-XII intact Psychiatric exam: Present: normal affect, normal mood Skin exam: Present: urticaria (Trunk, extremities, and face) Course Vital Signs 11/26/22 11/26/22 11/26/22 16:08 16:20 16:23 Temperature 98.0 F Pulse Rate 86 62 Respiratory 18 20 20 Rate Blood Pressure 119/82 132/86 O2 Sat by Pulse 99 99 Oximetry Medical Decision Making - Medical Decision Making Was pt. sent in by a medical professional or institution (, [facility], urgent care, hospital, or fpc...) When possible be specific @ -No Did you speak to anyone other than the patient for history (EMS, parent, family, police, friend...)? What history was obtained from this source @ -No Did you review nursing and triage notes (agree or disagree)? Why? @ -I reviewed and agree with nursing and triage notes Were old charts reviewed (outside hosp., previous admission, EMS record, old EKG, old radiological studies, urgent care reports/EKG's, fpc records)? Report findings @ -No old charts were reviewed Differential Diagnosis (chest pain, altered mental status, abdominal pain women, abdominal pain men, vaginal bleeding, weakness, fever, dyspnea, syncope, headache, dizziness, GI bleed, back pain, seizure, CVA, palpatations, mental health, musculoskeletal)? @ -Differential includes ALLERGIC reaction, Segun Jonathan syndrome, cellulitis, this is not all-inclusive list EKG interpreted by me (3pts min.). @ -As above X-rays interpreted by me (1pt min.). @ -None done CT interpreted by me (1pt min.). @ -None done U/S interpreted by me (1pt. min.). @ -None done What testing was considered but not performed or refused? (CT, X-rays, U/S, labs)? Why? @ -None What meds were considered but not given or refused? Why? @ -None Did you discuss the management of the patient with other professionals (professionals i.e. , [facility], lab, RT, psych nurse, manager social, gang worker, teacher, radiation safety officer, showcase maker)? Give summary @ -No Was smoking cessation discussed for >3mins.? @ -No Was critical care preformed (if so, how long)? @ -No Were there social determinants of health that impacted care today? How? (Homelessness, low income, unemployed, alcoholism, drug addiction, transportation, low edu. Level, literacy, decrease access to med. care, longterm, rehab)? @ -No Was there de-escalation of care discussed even if they declined (Discuss DNR or withdrawal of care, Hospice)? DNR status @ -No What co-morbidities impacted this encounter? (DM, HTN, Smoking, COPD, CAD, Cancer, CVA, ARF, Chemo, Hep., AIDS, mental health diagnosis, sleep apnea, morbid obesity)? @ -None Was patient admitted / discharged? Hospital course, mention meds given and route, prescriptions, significant lab abnormalities, going to OR and other pertinent info. @ -22-year-old female currently 15 weeks presenting with chief complaint of rash that started yesterday. No difficulty breathing or swallowing. Patient notes that she finished a course of Augmentin the day before. On physical examination there is diffuse urticaria. Heart and lungs are clear to auscultation and no swelling to the lips or tongue, normal posterior pharynx. Patient has been taking Benadryl regularly at home. She is given a dose of Pepcid here in discussed with patient the risks of steroids and , shortness of me he was used to patient did not wish to receive a dose of steroids. She is instructed to continue Benadryl at home and use cold compresses. Follow-up with PCP. Report back to ER with any new or worsening symptoms. Discussed return parameters and answered all questions. Patient conv eyed verbal understanding and agreed to the plan. I discussed this case in detail with my attending Dr. Espinosa Undiagnosed new problem with uncertain prognosis? @ -No Drug Therapy requiring intensive monitoring for toxicity (Heparin, Nitro, Insulin, Cardizem)? @ -No Were any procedures done? @ -No Diagnosis/symptom? @ -Urticaria Acute, or Chronic, or Acute on Chronic? @ -Acute Uncomplicated (without systemic symptoms) or Complicated (systemic symptoms)? @ -uncomplicated Side effects of treatment? @ -No Exacerbation, Progression, or Severe Exacerbation? @ -No Poses a threat to life or bodily function? How? (Chest pain, [place], [place], pneumonia, PE, COPD, DKA, ARF, appy, cholecystitis, CVA, Diverticulitis, Homicidal, Suicidal, threat to staff... and all critical care pts) @ -No Disposition Clinical Impression: Urticaria Disposition: HOME SELF-CARE Condition: Good Instructions (If sedation given, give patient instructions): Urticaria (ED) Additional Instructions: Follow-up with PCP and [facility] [facility] [facility]. Report back to ER with any new or worsening symptoms. Continue Benadryl as needed. Apply cold compresses to affected areas. Is patient prescribed a controlled substance at d/c from ED?: No Referrals: Luna Ryder MD [Primary Care Provider] - 1-2 days Time of Disposition: 16:36
[2022-11-26 17:00] VITALS: BP 135/68; PULSE 68; RESP 16
== END 2022-11-26 17:00 | disposition home or self-care (01) ==
LOC: EC 16:00
DX: O99.712 Diseases of the skin and subcutaneous tissue complicating pregnancy, second trimester (principal); L50.9 Urticaria, unspecified; Z3A.15 15 weeks gestation of pregnancy
CPT/HCPCS: 96374; 99283

== ENCOUNTER 2023-03-10 21:32 | Outpatient (CLI) | payer OTHER ==
[2023-03-11 00:13] VITALS: BP 130/86; PULSE 97; RESP 16; TEMP 97.7
--- NOTE | 2023-03-13 08:27 | P.MSEPDOC ---
Presenting Problems - Arrival Data Date of Arrival on Unit: 03/10/23 Time of Arrival on Unit: 21:32 Mode of Transport: Ambulatory - Complaint OB-Reason for Admission/Chief Complaint: Other Comment: Pt presents to triage with complaints of unknown tissue appearing in vaginal opening seen when opening labia using mirror deines any pain or issues with baby. states did have some sort of watery discharge around 2pm today. has not had any more leaking since Medical History - Information : 2 Para: 1 Term: 1 : 0 Abortions: Spontaneous or Elective: 0 Number of Living Children: 1 - Gestational Age Gestational Age by CHARLA (wks/days): 30 Weeks and 0 Days - History Comment: 1 vag delivery post dated 2018 Review of Systems - Review of Systems Constitutional: No problems Breast: No problems ENT: No problems Cardiovascular: No problems Respiratory: No problems Gastrointestinal: No problems Genitourinary: No problems Musculoskeletal: No problems Neurological: No problems Skin: No problems Vital Signs - Temperature Temperature: 97.7 F Temperature Source: Tympanic - Pulse Right Pulse Rate: 97 Pulse Assessment Method: Automatic Cuff - Respirations Respiratory Rate: 16 Oxygen Delivery Method: Room Air O2 Sat by Pulse Oximetry: 98 - Blood Pressure Right Arm Blood Pressure: 130/86 Blood Pressure Mean: 100 Blood Pressure Source: Automatic Cuff Medical Screen Scoring - Cervical Exam Dilation (cm): 0 Effacement (%): 0 Membranes: Intact - Uterine Contractions Frequency From (mins): 0 Frequency To (mins): 0 Duration From (seconds): 0 Duration To (seconds): 0 - Assessment - Baby A Baseline FHR: 135 Heart Rate - NICHD Category: Category I (Normal) NST: Reactive Physician Notification - Physician Notified Physician Notified Date: 03/10/23 Physician Notified Time: 22:20 Physician: Latosha Gardiner Order Received: Yes - Notification Comment Comment: Dr Gardiner advised per phone of pts reason for visit, brief history, assessment including vss, amnisure neg, Spec exam showing normal vag tissue, cervix not viewed, VE completed with Cervix closed and posterior. no contractions. status cat 1 with reacctive NST. Discharge order receied. Pt states is comfortable with plan for discharge and will keep scheduled appt 03/[address] Liao Maternal Triage Index - Maternal Triage Index Presenting for scheduled procedure w/no complaint: No - Stat/Priority 1 Stat Priority 1: No - Urgent/Priority 2 Urgent Priority 2: No - Prompt/Priority 3 Prompt Priority 3: No - Non-Urgent/Priority 4 Non-Urgent Priority 4: Yes Criteria Met for Priority 4: vag discharge and "some tissue coming out of vagina" Disposition - Disposition OB Disposition: Discharge to home Discharge Date: 03/11/23 Discharge Time: 22:35 I agree with the RN Medical Screening Exam: Yes Physician's MSE Comment: I have neither seen nor examined the patient Case reviewed; plan agreed upon as documented in EMR&OBIX.: Yes Diagnosis: MATERNAL CARE FOR PROBLEM, UNSP, THIRD * DO NOT USE *
== END 2023-03-10 22:35 | disposition home or self-care (01) ==
LOC: FBPOP 21:32
PROVIDERS: ATTEND Obstetrics & Gynecology
DX: O26.893 Other specified pregnancy related conditions, third trimester (principal); Z3A.30 30 weeks gestation of pregnancy; Z88.0 Allergy status to penicillin; Z88.8 Allergy status to other drugs, medicaments and biological substances
CPT/HCPCS: 59025; G0463; 99213

== ENCOUNTER 2023-05-19 08:26 | Inpatient (IN) | payer OTHER ==
[2023-05-19] MEDS ORDERED: TERBUTALINE 1 MG/ML VIAL SQ PRN (09:03)
[2023-05-19] MEDS ORDERED: CARBOPROST TROMETHAMINE 250 MCG/ML 1 ML AMP IM PRN (09:03)
[2023-05-19] MEDS ORDERED: miSOPROStoL 200 MCG TAB PO PRN (09:03)
[2023-05-19] MEDS ORDERED: TRANEXAMIC 1,000 MG/100ML-NACL 1,000 MG in EMPTY BAG 1 BAG IV PRN (09:03)
[2023-05-19] MEDS ORDERED: OXYTOCIN 10 UNIT/ML 1 ML VIAL IM PRN (09:03)
[2023-05-19] MEDS ORDERED: METHYLERGONOVINE 0.2 MG/ML 1 ML AMP IM PRN (09:03)
--- NOTE | 2023-05-19 09:17 | P.HPOB ---
History of Present Illness H&P Date: 05/19/23 Chief Complaint: Labor at 40-0/7 This is a 22-year-old 2 para 1-0-0-1 with an estimated due date of 05/19/2023 who is admitted at 40-0/7 weeks gestation and advanced active labor. Her has been uncomplicated thus far. Laboratory data: Blood type AB+, antibody screen negative, rubella nonimmune, VDRL nonreactive, hepatitis B surface antigen negative, HIV negative, hepatitis C antibody nonreactive, glucose tolerance testing within normal limits, group B strep negative Obstetric history: 2019 term normal spontaneous vaginal delivery, uncomplicated. History of depression. Review of Systems All systems: negative Past Medical History Past Medical History: No Reported History Additional Past Medical History / Comment(s): ovarian cyst History of Any Multi-Drug Resistant Organisms: None Reported Past Surgical History: No Surgical Hx Reported Past Anesthesia/Blood Transfusion Reactions: No Reported Reaction Additional Psychological History / Comment(s): Post depression Smoking Status: Never smoker - Past Family History Mother Family Medical History: Diabetes Mellitus Medications and Allergies Home Medications Medication Instructions Recorded Confirmed Type Aspirin [Vaz[place]] 81 mg PO DAILY 03/10/23 05/19/23 History Vit No.179/Iron/Folic 1 each PO DAILY 03/10/23 05/19/23 History [ Tablet] Sertraline [Zoloft] 100 mg PO DAILY 03/10/23 05/19/23 History Allergies Allergy/AdvReac Type Severity Reaction Status Date / Time amoxicillin [From Augmentin] Allergy Rash/Hives Verified 05/19/23 08:43 clavulanic acid Allergy Rash/Hives Verified 05/19/23 08:43 [From Augmentin] Exam Intake and Output 05/18/23 05/19/23 05/19/23 22:59 06:59 14:59 Other: Weight 87.997 kg Limited physical exam is performed. This is a actively laboring, uncomfortable female who is visibly gravid. Targeted physical exam is performed: Cervix is 9 cm dilated and 100% effaced. Artificial rupture membranes is undertaken and clear fluid is noted. heart tones are category 1 and she is patricio every 2-3 minutes spontaneously. Assessment and Plan (1) Term Current Visit: Yes Status: Acute Code(s): Z34.90 - ENCNTR FOR SUPRVSN OF NORMAL , UNSP, UNSP TRIMESTER SNOMED Code(s): 32618403 (2) Spontaneous onset of labor Current Visit: Yes Status: Acute Code(s): VXV6399 - SNOMED Code(s): 8445 7005 Plan: 22-year-old 2 para 1 admitted at 40-0/7 weeks gestation in spontaneous active labor. Group B strep negative and Rh+. Anticipate normal spontaneous v aginal delivery. status is currently reassuring.
[2023-05-19] MEDS: OXYTOCIN 30 UNITS/500 ML NS 30 UNIT in SALINE 1 500ML.BAG IV SCH (09:27)
[2023-05-19] MEDS: LACTATED RINGERS 1,000 ML IV SCH (09:27)
[2023-05-19 10:00] LABS: Basophils % (A) 0 %; Eosinophils # (A) 0.1 k/uL (0-0.7); Eosinophils % (A) 1 %; HCT 34.2 % (34.0-46.0); HGB 11.2 gm/dL (11.4-16.0); Hypochromasia Slight; Lymphocytes # (A) 1.3 k/uL (1.0-4.8); Lymphocytes % (A) 11 %; MCH 26.5 pg (25.0-35.0); MCHC 32.7 g/dL (31.0-37.0); MCV 80.9 fL (80.0-100.0); Mean Platelet Volume 13.1; Monocytes # (A) 0.6 k/uL (0-1.0); Monocytes % (A) 5 %; Neutrophils # (A) 10.2 k/uL (1.3-7.7); Neutrophils % (A) 83 %; Platelet Count 141 k/uL (150-450); RBC 4.23 m/uL (3.80-5.40); RDW 14.8 % (11.5-15.5); WBC 12.2 k/uL (3.8-10.6)
[2023-05-19] MEDS ORDERED: LANOLIN CREAM 5 GM TUBE TOPICAL PRN (10:29)
[2023-05-19] MEDS ORDERED: SIMETHICONE 80 MG CHEWABLE PO PRN (10:29)
[2023-05-19] MEDS ORDERED: ACETAMINOPHEN TAB 325 MG TAB PO PRN (10:29)
[2023-05-19] MEDS ORDERED: HYDROCORTISONE 2.5% RECTAL CREAM 30 GM TUBE RECTAL PRN (10:29)
[2023-05-19] MEDS ORDERED: diphenhydrAMINE 50 MG/ML 1 ML VIAL IVP PRN ×2 (10:29)
[2023-05-19] MEDS ORDERED: diphenhydrAMINE 25 MG CAP PO PRN (10:29)
[2023-05-19] MEDS ORDERED: diphenhydrAMINE 50 MG CAP PO PRN (10:29)
[2023-05-19] MEDS ORDERED: ZOLPIDEM 5 MG TAB PO PRN (10:29)
--- NOTE | 2023-05-19 10:31 | P.PROBDLV ---
Vaginal Delivery Note - . Vaginal Delivery Note: Findings: Male infant in the vertex presentation with nuchal cord 3. Apgars of 8 at 1 minute and 9 at 5 minutes weighing 8 lbs. 5 oz., 3770 g. Small second- degree perineal laceration. Intact, three-vessel cord placenta. EBL 100 mL's. Delivery summary: This is a 22-year-old 2 para 1001 woman with an estimated due date of 05/19/2023 who presented at 40-0/7 weeks gestation in spontaneous active labor. In triage she was 8 cm dilated but irregularly contra cting. She was admitted on and underwent artificial rupture of membranes. She was then 9 cm however was very irregularly patricio. She did progress to complete cervical dilation with strong urge to push. She was repositioned, prepped and draped in dorsal modified Shalom position. With additional maternal effort the head did deliver from the right occiput anterior position. Nuchal cord 3 was reduced. The rest the infant was then delivered onto the field and the nose and mouth were bulb suctioned. The was placed on the maternal abdomen and eventually the cord was clamped and cut. Apgars were 8 at 1 minute and 9 at 5 minutes and weight was 8 lbs. 5 oz. She had a somewhat prolonged third stage of labor but did after 15 minutes deliver an intact, three-vessel cord placenta. During the third stage the perineum was infused with lidocaine and a shallow second-degree laceration was repaired with 3-0 Vicryl suture in the usual fashion. The rest of the vagina and cervix were inspected and no further lacerations were noted. All counts were correct. Both mother and infant were doing well post delivery in the room.
[2023-05-19] MEDS: BENZOCAINE/MENTHOL SPRAY 1 GM/SPRAY AEROSOL TOPICAL PRN (10:35)
[2023-05-19] MEDS: LIDOCAINE 0.5% (PF) 5 MG/ML (50 ML SDV) SQ PRN (10:35)
[2023-05-19] MEDS: SENNOSIDES-DOCUSATE SODIUM 1 EACH TAB PO SCH (20:37)
[2023-05-19] MEDS: IBUPROFEN 600 MG TAB PO PRN (20:38)
[2023-05-20 06:12] LABS: Basophils # (A) 0.1 k/uL (0-0.2); Basophils % (A) 1 %; Eosinophils # (A) 0.1 k/uL (0-0.7); Eosinophils % (A) 1 %; HCT 29.8 % (34.0-46.0); HGB 9.8 gm/dL (11.4-16.0); Hypochromasia Slight; Lymphocytes # (A) 2.8 k/uL (1.0-4.8); Lymphocytes % (A) 25 %; MCH 26.8 pg (25.0-35.0); MCHC 32.8 g/dL (31.0-37.0); MCV 81.6 fL (80.0-100.0); Mean Platelet Volume 12.5; Monocytes # (A) 0.7 k/uL (0-1.0); Monocytes % (A) 6 %; Neutrophils # (A) 7.2 k/uL (1.3-7.7); Neutrophils % (A) 65 %; RBC 3.65 m/uL (3.80-5.40); RDW 14.8 % (11.5-15.5)
[2023-05-20 06:56] LABS: Platelet Count 139 k/uL (150-450)
--- NOTE | 2023-05-20 10:07 | P.PNOBGVD ---
Subjective - Subjective Principal diagnosis: day #1 Interval history: Patient is doing well . She is ambulating and voiding without difficulty. She is tolerating a regular diet without nausea or vomiting. Her lochia is noted to be moderate. Patient reports: Reports appetite normal, Reports voiding normally, Reports pain well controlled, Reports ambulating normally : doing well, bottle feeding Objective - Latest Vital Signs Latest vital signs: Vital Signs Temp Pulse Resp BP Pulse Ox 05/20/23 07:55 97.8 F 69 18 119/81 99 05/20/23 00:00 98.2 F 76 16 116/79 05/19/23 20:00 97.8 F 91 16 107/71 97 05/19/23 16:00 98.5 F 83 16 123/80 99 05/19/23 12:20 97.2 F L 75 16 122/76 05/19/23 12:05 78 16 107/74 05/19/23 11:50 77 16 106/69 05/19/23 11:35 66 16 107/69 05/19/23 11:20 82 16 100/61 05/19/23 11:05 74 16 108/65 05/19/23 10:50 80 16 111/63 05/19/23 10:35 76 16 110/59 05/19/23 10:20 97.7 F 83 16 116/69 Intake and Output 05/19/23 05/20/23 05/20/23 22:59 06:59 14:59 Other: Voiding Method Toilet # Voids 1 2 1 - Exam Extremities: Present: normal, edema Abdomen: Present: normal appearance, soft Uterus: Present: normal, firm - Labs Labs: Abnormal Lab Results - Last 24 Hours (Table) 05/20/23 Range/Units 05:33 WBC 11.0 H (3.8-10.6) k/uL RBC 3.65 L (3.80-5.40) m/uL Hgb 9.8 L (11.4-16.0) gm/dL Hct 29.8 L (34.0-46.0) % Plt Count 139 L (150-450) k/uL Assessment and Plan (1) Spontaneous onset of labor Current Visit: Yes Status: Acute Code(s): LSO2966 - SNOMED Code(s): 39243107 (2) Term Current Visit: Yes Status: Acute Code(s): Z34.90 - ENCNTR FOR SUPRVSN OF NORMAL , UNSP, UNSP TRIMESTER SNOMED Code(s): 44632567 (3) Normal spontaneous vaginal delivery Current Visit: No Status: Acute Code(s): O80 - ENCOUNTER FOR FULL-TERM UNCOMPLICATED DELIVERY SNOMED Code(s): 57216191 Plan: Patient is doing well . Plan to continue routine care. Anticipate discharge home tomorrow
[2023-05-21 00:53] VITALS: RESP 16
--- NOTE | 2023-05-21 06:12 | P.DS ---
Providers Date of admission: 05/19/23 08:52 Expected date of discharge: 05/21/23 Attending physician: Sonia Liao Primary care physician: Stated None - Discharge Diagnosis(es) (1) Spontaneous onset of labor Current Visit: Yes Status: Acute (2) Term Current Visit: Yes Status: Acute (3) Normal spontaneous vaginal delivery Current Visit: No Status: Acute Hospital Course: 22-year-old G2 now P2 presented in labor on 05/19. Patient was admitted and found to be advanced and dilated at 78 cm. Patient been receiving routine care which have been essentially uncomplicated. Patient was admitted to labor and delivery and made good progress through labor. Patient was noted to be completely dilated and began pushing. Patient had a normal spontaneous vaginal delivery of a viable male infant at 1019 on 05/19, weight of 8 pounds 5 ounces, Apgars of 8 and 9 at 1 and 5 minutes respectively. Patient did sustain a second-degree midline laceration this was repaired in the usual fashion after instillation of lidocaine. Patient's course has been uneventful. This day #2 she is ambulating and voiding without difficulty. She is tolerating a regular diet without nausea or vomiting. States her pain is well-controlled. She denies concerns. Peds did have a concern regarding the head and possible cephalohematoma. Workup was negative. Patient Condition at Discharge: Good Plan - Discharge Summary New Discharge Prescriptions: No Action Sertraline [Zoloft] 100 mg PO DAILY Vit No.179/Iron/Folic [ Tablet] 1 each PO DAILY Aspirin [Vazalore] 81 mg PO DAILY Discharge Medication List Aspirin [Vazalore] 81 mg PO DAILY 03/10/23 [History] Vit No.179/Iron/Folic [ Tablet] 1 each PO DAILY 03/10/23 [History] Sertraline [Zoloft] 100 mg PO DAILY 03/10/23 [History] Follow up Appointment(s)/Referral(s): Sonia Liao MD [STAFF PHYSICIAN] - 6 Weeks Patient Instructions/Handouts: Vaginal Delivery (DC), Vaginal Delivery (GEN) Activity/Diet/Wound Care/Special Instructions: No intercourse, tampons or douching. No heavy lifting greater than a gallon of milk. No driving for two weeks. Call with any fever, shakes or chills, with any pain not alleviated by over the counter meds, or with any quesions or concerns. Discharge Disposition: HOME SELF-CARE
[2023-05-21 10:45] VITALS: BP 105/68; PULSE 81; TEMP 98.1
== END 2023-05-21 11:09 | disposition home or self-care (01) | DRG 560 ==
LOC: FBPOP 08:26 → 4FBP 08:52
PROVIDERS: ADMIT Obstetrics & Gynecology; ATTEND Obstetrics & Gynecology
PROC: 10E0XZZ Delivery of Products of Conception, External Approach (ICD-10-PCS; principal; 2023-05-19)
PROC: 0KQM0ZZ Repair Perineum Muscle, Open Approach (ICD-10-PCS; 2023-05-19)
DX: O69.81X0 Labor and delivery complicated by cord around neck, without compression, not applicable or unspecified (principal); O70.1 Second degree perineal laceration during delivery; Z3A.40 40 weeks gestation of pregnancy; Z37.0 Single live birth; Z79.899 Other long term (current) drug therapy; Z83.3 Family history of diabetes mellitus
CPT/HCPCS: 59025; 85025; 86850; 86900; 86901; 99213